=== PATIENT | female | born 1965 | race Caucasian/White ===

== ENCOUNTER 2017-08-18 22:44 | Emergency (ER) | payer OTHER ==
[~2017-08-18] VITALS: Ht 165.1 cm; Wt 135.0 kg
[~2017-08-18 22:44] MED LIST: NORCO 5/3251 TABLET PO
[2017-08-18] MEDS ORDERED: MOTRIN800 MG PO (23:21)
[2017-08-18] MEDS ORDERED: LEVAQUIN750 MG PO (23:21)
[2017-08-18] MEDS ORDERED: PERCOCET 5/31 TABLET PO (23:21)
== END 2017-08-19 00:07 | disposition home or self-care (01) ==
LOC: EME 22:44
DX: S91.331A Puncture wound without foreign body, right foot, initial encounter (principal); W22.09XA Striking against other stationary object, initial encounter; W45.0XXA Nail entering through skin, initial encounter
CPT/HCPCS: 73630; 99281; 99284

== ENCOUNTER 2018-02-20 19:06 | Emergency (ER) | payer OTHER ==
[~2018-02-20] VITALS: Ht 162.6 cm; Wt 139.1 kg
[~2018-02-20 19:06] MED LIST changes: +LEVAQUIN750 MG PO; +MOTRIN800 MG PO; +PERCOCET 5/31 TABLET PO
[2018-02-20 22:04] VITALS: BP 164/109
== END 2018-02-20 22:20 | disposition home or self-care (01) ==
LOC: EME 19:06
DX: G43.909 Migraine, unspecified, not intractable, without status migrainosus (principal); I10 Essential (primary) hypertension
CPT/HCPCS: 99281; 99284; J1100; J1200; J1885; J2765; J7030